=== PATIENT | female | born 1990 | race Caucasian/White ===

== ENCOUNTER 2019-09-06 00:20 | Emergency (ER) | payer OTHER ==
[~2019-09-06] VITALS: Ht 157.5 cm; Wt 57.3 kg
[2019-09-06 00:23] VITALS: Ht 157.5 cm; Wt 57.3 kg
[2019-09-06 05:48] VITALS: BP 114/71
== END 2019-09-06 05:48 | disposition home or self-care (01) ==
LOC: ED 00:20
DX: N75.0 Cyst of Bartholin's gland (principal); N94.89 Other specified conditions associated with female genital organs and menstrual cycle
CPT/HCPCS: J2001

== ENCOUNTER 2020-07-14 19:08 | Emergency (ER) | payer OTHER ==
[~2020-07-14] VITALS: Ht 154.9 cm; Wt 68.5 kg
[2020-07-14 19:17] VITALS: Ht 154.9 cm; Wt 68.5 kg
[2020-07-14 19:37] VITALS: BP 130/91
== END 2020-07-14 19:37 | disposition home or self-care (01) ==
LOC: ED 19:08
DX: S00.561A Insect bite (nonvenomous) of lip, initial encounter (principal); K13.0 Diseases of lips; W57.XXXA Bitten or stung by nonvenomous insect and other nonvenomous arthropods, initial encounter; Y93.89 Activity, other specified; Y92.89 Other specified places as the place of occurrence of the external cause; Y99.8 Other external cause status